=== PATIENT | female | born 1960 | race Caucasian/White ===

== ENCOUNTER 2018-11-12 11:01 | Inpatient (IN) | payer OTHER ==
[2018-11-09 08:59] LABS: BASOPHILS % 0.5 % (0.0-1.0); EOSINOPHILS # (AUTO) 0.1 (0.0-0.4); EOSINOPHILS % 1.3 % (0.0-6.0); HEMATOCRIT 41.6 % (34.2-44.1); HEMOGLOBIN 14.4 g/dL (12.0-16.0); LYMPHOCYTES # (AUTO) 1.5 (1.0-3.2); LYMPHOCYTES % 28.2 % (18.0-39.1); MEAN CORPUSCULAR HEMOGLOBIN 30.4 pg (28-32); MEAN CORPUSCULAR HGB CONC 34.6 g/dL (31-35); MEAN CORPUSCULAR VOLUME 87.9 fL (81-99); MONOCYTES # (AUTO) 0.5 (0.2-0.8); MONOCYTES % 8.2 % (4.4-11.3); NEUTROPHILS # (AUTO) 3.4 (2.1-6.9); NEUTROPHILS % 61.6 % (38.7-80.0); PLATELET COUNT 200 x10e3/uL (140-360); RED BLOOD COUNT 4.73 x10e6/uL (3.6-5.1); RED CELL DISTRIBUTION WIDTH 13.6 % (11.7-14.4)
[2018-11-12] VITALS (8 sets, daily range): BP systolic 116–142; BP diastolic 69–94
[~2018-11-12] VITALS: Ht 170.2 cm; Wt 52.6 kg
[~2018-11-12 11:01] MED LIST: DETROL LA4 MG PO
[2018-11-12] MEDS ORDERED: CLINDAMYCIN 600MG / 50ML 50 ML IV ONE (11:42)
[2018-11-12] MEDS ORDERED: GENTAMICIN 80MG/NS 100 ML 200 ML IV ONE (11:43)
[2018-11-12] MEDS ORDERED: CEFAZOLIN SOD 1 GM/NS 50ML 50 ML IV ONE (11:43)
[2018-11-12] MEDS ORDERED: IOPAMIDOL 610MG/1ML 300 MG/ML VIAL IV ONE (12:20)
[2018-11-12] MEDS ORDERED: MANNITOL 25% 12.5GM/50ML 50 ML ONE (12:57)
[2018-11-12] MEDS ORDERED: MORPHINE SULFATE INJ 10 MG/ML ONE (14:17)
[2018-11-12] MEDS ORDERED: FENTANYL CITRATE/PF 100MCG/2 ML INJ ONE ×2 (14:17→16:12)
[2018-11-12] MEDS ORDERED: MIDAZOLAM HCL 2 MG/2 ML VIAL ONE (14:17)
[2018-11-12] MEDS ORDERED: SUGAMMADEX SODIUM 200 MG/2 ML VIAL IV ONE (14:55)
[2018-11-12] MEDS ORDERED: GLYCOPYRROLATE 0.2 MG/ML VIAL ONE (15:23)
[2018-11-12] MEDS ORDERED: DIPHENHYDRAMINE HCL INJ 50 MG/ML VIAL IM PRN (15:30)
[2018-11-12] MEDS ORDERED: NALOXONE HCL INJ 0.4 MG/ML AMP IV PRN (15:30)
[2018-11-12] MEDS ORDERED: HYDROMORPHONE 2MG/ML 2 MG/ML ML ONE ×2 (16:28→16:53)
--- NOTE | 2018-11-12 16:46 | Diagnostic Imaging Report ---
Examination: Single AP view of the chest. COMPARISON: None. INDICATION: Renal mass, concern for pneumothorax DISCUSSION: The lungs are well-inflated. Curvilinear interface projects over the left lateral thorax, felt to represent a skin fold, as lung markings are identified peripheral to the interface. No definite pneumothorax. No consolidation or effusion. Enteric tube tip projects over the expected region of the proximal gastric body. Postoperative pneumoperitoneum with skin breana along the left upper quadrant of the abdomen/left flank. IMPRESSION: Postsurgical changes of the left flank/left upper abdomen with postoperative pneumoperitoneum. No definite pneumothorax per clinical query. Signed by: Dr. Gianfranco Cassidy M.D. on 11/12/2018 4:43 PM
[2018-11-12] MEDS ORDERED: ONDANSETRON HCL INJ 2MG/ML 2ML 2 MG/ML VIAL ONE ×2 (16:53→18:00)
[2018-11-12] MEDS ORDERED: PROMETHAZINE HCL (IM) 25 MG/ML VIAL ONE (17:11)
[2018-11-12] MEDS ORDERED: MORPHINE SULFATE 1 MG/ML 30ML PCA ONE (17:11)
[2018-11-12] MEDS: MORPHINE SULFATE 1 MG/ML 30ML PCA IV PRN (17:20)
[2018-11-12 17:22] LABS: BASOPHILS % 0.2 % (0.0-1.0); EOSINOPHILS # (AUTO) 0.2 (0.0-0.4); EOSINOPHILS % 1.3 % (0.0-6.0); HEMATOCRIT 36.7 % (34.2-44.1); HEMOGLOBIN 12.6 g/dL (12.0-16.0); LYMPHOCYTES # (AUTO) 0.6 (1.0-3.2); LYMPHOCYTES % 5.3 % (18.0-39.1); MEAN CORPUSCULAR HEMOGLOBIN 30.3 pg (28-32); MEAN CORPUSCULAR HGB CONC 34.3 g/dL (31-35); MEAN CORPUSCULAR VOLUME 88.2 fL (81-99); MONOCYTES # (AUTO) 0.2 (0.2-0.8); MONOCYTES % 1.6 % (4.4-11.3); NEUTROPHILS # (AUTO) 10.3 (2.1-6.9); NEUTROPHILS % 91.2 % (38.7-80.0); PLATELET COUNT 160 x10e3/uL (140-360); RED BLOOD COUNT 4.16 x10e6/uL (3.6-5.1); RED CELL DISTRIBUTION WIDTH 13.2 % (11.7-14.4)
[2018-11-12 17:39] LABS: ANION GAP 13.3 mmol/L (8-16); BLOOD UREA NITROGEN 15 mg/dL (7-26); BUN/CREATININE RATIO 19 (6-25); CALCIUM 8.8 mg/dL (8.4-10.2); CARBON DIOXIDE 23 mmol/L (22-29); CHLORIDE 108 mmol/L (98-107); CREATININE, SERUM 0.77 mg/dL (0.57-1.11); EST GLOMERULAR FILTRATION RATE > 60 ML/MIN (60-); GLUCOSE 91 mg/dL (74-118); POTASSIUM 3.3 mmol/L (3.5-5.1); SODIUM 141 mmol/L (136-145)
[2018-11-12] MEDS ORDERED: SODIUM CHLORIDE 0.9% 500ML 500 ML ONE (17:43)
[2018-11-12] MEDS ORDERED: DEXILANT30 MG (17:58)
[2018-11-12] MEDS ORDERED: LIDOCAINE HCL 2% LOCAL INJ 5 ML SDV VIAL INJ ONE (18:00)
[2018-11-12] MEDS ORDERED: DEXAMETHASONE SOD PHOS INJ 4 MG/ML VIAL ONE (18:00)
[2018-11-12] MEDS ORDERED: SEVOFLURANE INHAL SOLN 250 ML PEN BTL ONE (18:00)
[2018-11-12] MEDS ORDERED: ROCURONIUM BROMIDE 10 MG/ML 5ML VIAL ONE (18:00)
[2018-11-12] MEDS ORDERED: LIDOCAINE HCL 2% JELLY 5 ML TUBE ONE (18:00)
[2018-11-12] MEDS ORDERED: PROPOFOL IV EMULSION 10 MG/ML 20 ML VIAL ONE (18:00)
[2018-11-12] MEDS ORDERED: ACETAMINOPHEN 1000 MG/100 ML IV ONE (18:00)
[2018-11-12] MEDS: SODIUM CHLORIDE 0.9% 250ML IRRIG IR SCH ×2 (18:37→20:29)
[2018-11-12] MEDS: D5.45%NS/KCL 20MEQ 1,000 ML IV SCH (18:38)
[2018-11-13] VITALS (21 sets, daily range): BP systolic 100–146; BP diastolic 48–90
[2018-11-13] MEDS: SODIUM CHLORIDE 0.9% 250ML IRRIG IR SCH ×3 (00:11→08:04)
[2018-11-13] MEDS: MORPHINE SULFATE 1 MG/ML 30ML PCA IV PRN ×2 (00:21→12:26)
[2018-11-13] MEDS: ACETAMINOPHEN 1000 MG/100 ML IV PRN ×3 (00:25→19:53)
[2018-11-13] MEDS: CEFAZOLIN SOD 1 GM/NS 50ML 50 ML IV SCH ×4 (00:27→22:10)
[2018-11-13] MEDS: D5.45%NS/KCL 20MEQ 1,000 ML IV SCH ×4 (04:56→13:33)
[2018-11-13 05:08] LABS: BASOPHILS % 0.2 % (0.0-1.0); HEMATOCRIT 35.6 % (34.2-44.1); LYMPHOCYTES # (AUTO) 1.3 (1.0-3.2); LYMPHOCYTES % 10.3 % (18.0-39.1); MEAN CORPUSCULAR HEMOGLOBIN 29.9 pg (28-32); MEAN CORPUSCULAR HGB CONC 33.7 g/dL (31-35); MEAN CORPUSCULAR VOLUME 88.6 fL (81-99); MONOCYTES # (AUTO) 1.1 (0.2-0.8); MONOCYTES % 8.3 % (4.4-11.3); NEUTROPHILS # (AUTO) 10.4 (2.1-6.9); NEUTROPHILS % 80.7 % (38.7-80.0); PLATELET COUNT 158 x10e3/uL (140-360); RED BLOOD COUNT 4.02 x10e6/uL (3.6-5.1); RED CELL DISTRIBUTION WIDTH 13.3 % (11.7-14.4)
[2018-11-13 05:33] LABS: ANION GAP 10.9 mmol/L (8-16); CALCIUM 8.9 mg/dL (8.4-10.2); CREATININE, SERUM 0.96 mg/dL (0.57-1.11); POTASSIUM 3.9 mmol/L (3.5-5.1)
[2018-11-13] MEDS: NICOTINE 7 MG PATCH TOP SCH ×2 (06:06→08:32)
--- NOTE | 2018-11-13 08:30 | NUR ---
NGT DISCONTINUED. DC'D NASAL CANULA. PATIENT O2 SATS AT 100% ON ROOM AIR.
--- NOTE | 2018-11-13 08:53 | NUR ---
ASSISTED PATIENT OUT OF BED TO CHAIR. PATIENT TOLERATED WELL. VSS
[2018-11-13] MEDS: ONDANSETRON HCL INJ 2MG/ML 2ML 2 MG/ML VIAL IV PRN ×2 (09:23→19:53)
--- NOTE | 2018-11-13 13:52 | NUR ---
Nutrition Intervention Note RD Recommendation(s) for Physician: - When feasible ADAT to goal of GI Soft - Recommend Ensure Clear TID when diet is advanced - Pt meets criteria for moderate protein calorie malnutrition Plan of Care: RD following, monitoring for tolerance and adequacy Nutrition reason for involvement: Nutrition Risk Trigger- MST RD Assessment 11/13: 58 YOF admitted for L renal mass, POD#1 for radical nephrectomy. Pt seen today per MST score. Pt reports decreased po intake for several months and progressive wt loss over the past 2 years, estimates that she has lost 10-20# in the past 6 mo. Pt reports intermittent chronic diarrhea related to diverticulosis, denies GI distress recently. Pt receptive to Ensure Clear when diet advanced, does not like other Ensure products- does not like anything milk based or creamy. Rec's and POC discussed with RN. Will monitor and continue to follow. Principal Problems/Diagnoses: L renal mass PMH: HTN, GERD, PUD, diverticulosis, cholecystectomy GI: WDL Skin: surgical incision Labs: 11/13: Na 136, K 3.9, BUN 15, Cr 0.96, Gluc 106 Meds: zofran, KCl, abx, morphine Ht: 67 in Wt: 117.25 lb BMI: 18.4 kg/m2 IBW: 135 lb Malnutrition Evaluation (11/13/18) The patient meets criteria for MODERATE protein-calorie malnutrition. Energy intake: <75% of estimated energy requirements for >3 months Weight loss: 10% in 6 months (Chronic) Fat loss: Mild Muscle loss: Moderate Supporting Evidence: Fluid accumulation: none Functional Status: no changes Nutrition Prescription (Diet Order): NPO Estimated Nutritional Needs: 1711-9075 calories/day (30-35 kcal/kg CBW) 80-107 g protein/day (1.5-2 g pro/kg CBW) Diet Adequacy: Not meeting calorie needs, Not meeting protein needs Diet Education Needs Assessment: Diet education indicated, but patient not appropriate for education at this time. Nutrition Care Level: Moderate Nutrition Diagnosis: Inadequate energy and protein intake related to poor appetite and intake as evidenced by 10% wt loss in 6 mo and not meeting needs. Goal: Patient will meet 75-100% of estimated needs by follow up Progress: N/A Interventions: Fiber modified diet, Commercial beverage, Recommended Modifications, Collaboration with other providers Monitoring/Evaluation: Total energy intake, Total protein intake, Modified diet, Liquid supplement, Weight change Signed: Cynthia Dunn RD, LD, [facility]
--- NOTE | 2018-11-13 17:21 | NUR ---
received report from thad in icu awaiting for pt to arrive to unit
--- NOTE | 2018-11-13 17:35 | NUR ---
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
[2018-11-14] VITALS (7 sets, daily range): BP systolic 117–180; BP diastolic 70–83
[2018-11-14] MEDS: D5.45%NS/KCL 20MEQ 1,000 ML IV SCH (00:03)
--- NOTE | 2018-11-14 00:09 | Consultation ---
DATE OF CONSULTATION: 11/13/2018 Cardiology Consult Note REASON FOR CONSULT: Bradycardia. CHIEF COMPLAINT: Postop abdominal pain. HISTORY OF PRESENT ILLNESS: The patient is a 58-year-old female, history of smoking, renal cell carcinoma status post partial nephrectomy earlier today, was consulted for evaluation of sinus bradycardia that was observed in the recovery room postoperatively. The patient has history of SVT, however, has not been on any medicines for several years now. Denies any history of TN or any other cardiovascular issues. The patient is a long-time smoker, who quit recently 3 weeks ago. Denies any chest pain or shortness of breath currently or any other symptoms. PAST MEDICAL HISTORY: As above. SOCIAL HISTORY: The patient is a long-time smoker, quit 3 weeks ago. Does not drink or abuse drugs. FAMILY HISTORY: No family history of early CAD or sudden cardiac . REVIEW OF SYSTEMS: As per HPI. Otherwise negative. OUTPATIENT MEDICATIONS: Reviewed. OBJECTIVE: VITAL SIGNS: Temperature afebrile, pulse 60, respiratory rate 14, blood pressure 126/68, and saturating 100% on room air. GENERAL: Thin, white female, in no acute distress. CARDIOVASCULAR: Regular rate and rhythm. No murmurs, rubs, or gallops. LUNGS: Clear to auscultation bilaterally. ABDOMEN: Soft and tender to palpation due to postoperative status. No bowel sounds. NEURO AND PSYCH: Alert and oriented to person, place, and time. Normal affect. INPATIENT MEDICATIONS: Reviewed. LABORATORY DATA: Reviewed. IMAGING DATA: Reviewed. TELEMETRY DATA: Reviewed, sinus bradycardia, now heart rates are in the 60s. The patient is asymptomatic. ASSESSMENT: 1. Bradycardia. 2. History of supraventricular tachycardia. PLAN: Heart rate is improved already without any intervention. If the patient becomes symptomatic or heart rate drops below 40, can give Atropine as needed. Bradycardia is likely related to recent abdominal surgery. Does not need any intervention at this time. Continue to monitor on telemetry. Avoid any beta blockers. Thank you for this consult. We will continue to follow. MD NEL Tirado/JOANL /[id number]
[2018-11-14] MEDS: MORPHINE SULFATE 1 MG/ML 30ML PCA IV PRN (02:02)
[2018-11-14] MEDS: ACETAMINOPHEN 1000 MG/100 ML IV PRN (03:40)
[2018-11-14 06:00] LABS: BASOPHILS % 0.1 % (0.0-1.0); HEMATOCRIT 33.7 % (34.2-44.1); HEMOGLOBIN 11.5 g/dL (12.0-16.0); LYMPHOCYTES % 11.3 % (18.0-39.1); MEAN CORPUSCULAR HEMOGLOBIN 30.3 pg (28-32); MEAN CORPUSCULAR HGB CONC 34.1 g/dL (31-35); MEAN CORPUSCULAR VOLUME 88.7 fL (81-99); MONOCYTES # (AUTO) 0.6 (0.2-0.8); MONOCYTES % 6.6 % (4.4-11.3); NEUTROPHILS # (AUTO) 7.2 (2.1-6.9); NEUTROPHILS % 81.7 % (38.7-80.0); PLATELET COUNT 128 x10e3/uL (140-360); RED CELL DISTRIBUTION WIDTH 13.5 % (11.7-14.4)
[2018-11-14] MEDS: CEFAZOLIN SOD 1 GM/NS 50ML 50 ML IV SCH ×3 (06:02→21:22)
[2018-11-14 06:33] LABS: ANION GAP 7.8 mmol/L (8-16); CALCIUM 8.9 mg/dL (8.4-10.2); POTASSIUM 3.8 mmol/L (3.5-5.1)
[2018-11-14] MEDS ORDERED: BISACODYL 10 MG SUPP PR NR (09:15)
[2018-11-14] MEDS ORDERED: MORPHINE SULFATE INJ 4 MG/ML INJ 1ML IV PRN (09:15)
[2018-11-14] MEDS: NICOTINE 7 MG PATCH TOP SCH (09:18)
[2018-11-14] MEDS ORDERED: ACETAMINOPHEN/CODEINE 300MG - 30MG TAB PO PRN (10:15)
--- NOTE | 2018-11-14 10:42 | NUR ---
Broussard Catheter 20Fr. discontinued at this time. Pt tolerated well. Clear straw colored urine noted in collection bag. 10cc of fluid removed from balloon.
[2018-11-14] MEDS ORDERED: ACETAMINOPHEN 325 MG TAB PO NR (12:00)
[2018-11-14] MEDS: SENNOSIDES 8.6 MG TAB PO SCH ×2 (12:18→18:20)
[2018-11-14 12:41] LABS: BAND NEUTROPHILS % (MANUAL) 1 %; LYMPHOCYTES % (MANUAL) 7 % (19-48); MONOCYTES % (MANUAL) 5 % (3.4-9.0); NEUTROPHILS % (MANUAL) 87 % (40-74); PLATELET ESTIMATE ADEQUATE; PLATELET MORPHOLOGY COMMENT NORMAL; RBC MORPHOLOGY COMMENT NORMAL
[2018-11-14] MEDS: ONDANSETRON HCL INJ 2MG/ML 2ML 2 MG/ML VIAL IV PRN (15:07)
--- NOTE | 2018-11-14 15:42 | NUR ---
Pt ambulated with PT today. Gait steady, no c/o dizziness or pain during ambulation. Pt is able to ambulate by self without need of assistance.
--- NOTE | 2018-11-14 21:15 | Progress Note ---
DATE: 11/14/2018 Cardiology Progress Note. SUBJECTIVE: No major events overnight. OBJECTIVE: VITAL SIGNS: Temperature is afebrile, pulse 81, respiratory rate 20, blood pressure 117/70, saturating 96% on room air. GENERAL: Thin, white female, in no acute distress. CARDIOVASCULAR: Regular rate and rhythm. No murmurs, rubs, or gallops. LUNGS: Clear to auscultation bilaterally. ABDOMEN: Soft, mildly tender to palpation. NEURO AND PSYCH: Alert and oriented to person, place, and time. Normal affect. INPATIENT MEDICATIONS: Reviewed. LABORATORY DATA: Reviewed. IMAGING DATA: Reviewed. TELEMETRY DATA: Reviewed, back in normal sinus rhythm, heart rate in the 80s. ASSESSMENT/PLAN: 1. Bradycardia postoperatively, now resolved. 2. History of supraventricular tachycardia. PLAN: The patient is doing well. Bradycardia is now resolved. We will continue to monitor telemetry for any arrhythmias, otherwise doing well from cardiovascular standpoint. MD NEL Tirado/MARIJA /[id number]
[2018-11-14] MEDS: HYDROCODONE/APAP 10MG-325MG TAB PO PRN (22:16)
[2018-11-15] VITALS (7 sets, daily range): BP systolic 127–157; BP diastolic 74–89
[2018-11-15] MEDS: CEFAZOLIN SOD 1 GM/NS 50ML 50 ML IV SCH ×2 (06:22→14:00)
[2018-11-15 06:26] LABS: BASOPHILS % 0.3 % (0.0-1.0); EOSINOPHILS % 0.6 % (0.0-6.0); HEMATOCRIT 34.8 % (34.2-44.1); HEMOGLOBIN 11.9 g/dL (12.0-16.0); LYMPHOCYTES % 14.2 % (18.0-39.1); MEAN CORPUSCULAR HEMOGLOBIN 30.2 pg (28-32); MEAN CORPUSCULAR HGB CONC 34.2 g/dL (31-35); MEAN CORPUSCULAR VOLUME 88.3 fL (81-99); MONOCYTES # (AUTO) 0.8 (0.2-0.8); MONOCYTES % 11.4 % (4.4-11.3); NEUTROPHILS # (AUTO) 5.1 (2.1-6.9); NEUTROPHILS % 73.2 % (38.7-80.0); PLATELET COUNT 126 x10e3/uL (140-360); RED BLOOD COUNT 3.94 x10e6/uL (3.6-5.1); RED CELL DISTRIBUTION WIDTH 13.2 % (11.7-14.4)
[2018-11-15] MEDS: HYDROCODONE/APAP 10MG-325MG TAB PO PRN ×3 (06:45→17:41)
[2018-11-15] MEDS: BISACODYL 10 MG SUPP PR PRN ×2 (06:45→08:51)
[2018-11-15 06:56] LABS: ANION GAP 10.5 mmol/L (8-16); BLOOD UREA NITROGEN 9 mg/dL (7-26); BUN/CREATININE RATIO 11 (6-25); CALCIUM 9.2 mg/dL (8.4-10.2); CARBON DIOXIDE 26 mmol/L (22-29); CHLORIDE 102 mmol/L (98-107); CREATININE, SERUM 0.83 mg/dL (0.57-1.11); EST GLOMERULAR FILTRATION RATE > 60 ML/MIN (60-); GLUCOSE 67 mg/dL (74-118); POTASSIUM 3.5 mmol/L (3.5-5.1); SODIUM 135 mmol/L (136-145)
--- NOTE | 2018-11-15 08:48 | NUR ---
Patient alert and responsive, rounds by Dr. Oconnor this morning and requested for extra Dulcolax suppository to be given x1 and has been given, on clear liquid diet, encouraged ambulation, VSS, pains well managed, call light within reach. New IV line in place to left hand 20 guage.
[2018-11-15] MEDS: NICOTINE 7 MG PATCH TOP SCH (08:51)
[2018-11-15] MEDS: SENNOSIDES 8.6 MG TAB PO SCH ×2 (08:51→17:17)
--- NOTE | 2018-11-15 11:50 | NUR ---
Patient had breakfast and tolerated well, denies N/V , medicated for pain, no resp distress, OOB and ambulated hallway, back to bed, call light within reach. Benito in place to left flank incision, will monitor.
--- NOTE | 2018-11-15 13:57 | NUR ---
Spoke with Dr. Oconnor and updated on patient status, patient had a small soft BM, tolerated clear liquid lunch. Orders to advance to a regular diet and if tolerates, can be discharged after that.
--- NOTE | 2018-11-15 14:39 | Progress Note ---
DATE: 11/15/2018 Cardiology Progress Note SUBJECTIVE: No major events overnight. Walking around the halls. No shortness of breath or chest pain. OBJECTIVE: VITAL SIGNS: Temperature afebrile, pulse 76, respiratory rate 18, blood pressure 151/89, and saturating 97% on room air. GENERAL: Thin, white female, in no acute distress. CARDIOVASCULAR: Regular rate and rhythm. No murmurs, rubs, or gallops. LUNGS: Clear to auscultation bilaterally. ABDOMEN: Soft, mildly tender to palpation. NEURO AND PSYCH: Alert and oriented to person, place, and time. Normal affect. INPATIENT MEDICATIONS: Reviewed. LABORATORY DATA: Reviewed. IMAGING DATA: Reviewed. TELEMETRY DATA: Reviewed. Remains in sinus rhythm, heart rate in the 70s and 80s now. ASSESSMENT: 1. Bradycardia, now resolved. 2. History of supraventricular tachycardia. PLAN: Doing well. Bradycardia now resolved. No evidence of arrhythmia. Otherwise, we will continue to monitor. MD NEL Tirado/MODL /[id number]
--- NOTE | 2018-11-15 17:52 | NUR ---
Call to Dr. Munguia and concurred to discharge patient as cleared by Dr. Oconnor upon tolerating regular diet. Patient had dinner at this time and denies any nausea, no vomiting, had one small soft BM earlier after lunch but has not had anymore, discharge being processed.
[2018-11-15] MEDS ORDERED: TYLENOL325 MG PO (18:10)
[2018-11-15] MEDS ORDERED: TYLENOL WITH C1 EACH PO (18:10)
[2018-11-15] MEDS ORDERED: COLACE100 MG PO (18:11)
--- NOTE | 2018-11-15 19:00 | NUR ---
L hand 20g IV removed at this time. Catheter tip intact. Pressure dressing applied.
--- NOTE | 2018-11-15 19:26 | NUR ---
Provided with prescriptions, contacts for f/u appt, staple remover,, discharge documentation, IV line removed and cath tip in place, dressing applied. Patient picked up by anna
--- NOTE | 2019-01-08 06:39 | Operative Report ---
DATE OF PROCEDURE: 11/12/2018 SURGEON: Ever Oconnor MD PREOPERATIVE DIAGNOSES: 1. Left renal mass. 2. Nephrolithiasis. POSTOPERATIVE DIAGNOSES: 1. Left renal mass. 2. Nephrolithiasis. 3. Grade 2 cystocele. 4. Grade 2 rectocele. 5. Atrophic (senile) vaginitis. 6. Urethral hypermobility. 7. Possibly firm cervix. OPERATION PERFORMED: 1. Cystourethroscopy with bilateral ureteral catheterization and retrograde ureteropyelography (separate procedure performed for nephrolithiasis). 2. Interpretation of retrograde ureteropyelography. 3. Supervision of fluoroscopy, no radiologist present. 4. Pelvic examination under anesthesia. 5. Left radical nephrectomy (separate procedure performed for left renal mass). CLEANING AND WASHING EQUIPMENT OPERATOR: Bing Oconnor MD. COMPLICATIONS: None. ESTIMATED BLOOD LOSS: 100 mL. CLINICAL SUMMARY: Radha Tejada is a 58-year-old woman with the above preoperative diagnoses. She is brought for the above procedure. She is aware of the risks of bleeding, infection, injury to adjacent structures, need for additional procedures, and elected to proceed. OPERATIVE PROCEDURE IN DETAIL: Informed consent was verified. Radha Tejada was properly identified, taken to the operating room, and placed on a cystoscopy table in supine position. Anesthesia was uneventfully begun. The patient was then carefully gently repositioned in the dorsal lithotomy position with all pressure points were padded. Her genitalia were prepared and draped in usual sterile fashion. The cystoscope sheath was inserted into the patient's urethra with obturator in place and the bladder was drained. Panendoscopy revealed no suspicious mucosal lesions, no tumors, no stones, no diverticula. Normally positioned and configured ureteral orifices were identified. Ureteral catheter was used to cannulate each ureter and retrograde ureteropyelogram was performed. Interpretation of retrograde ureteropyelography: The contrast was instilled in retrograde fashion bilaterally. The right side was unremarkable. There were no tumors, no stones, and no diverticula. Unobstructed drainage was observed. The left side exhibited filling defects corresponding with nephrolithiasis, distortion of the collecting system, which we believe is related to the renal mass that the patient had. Broussard catheter was placed. Pelvic examination under anesthesia revealed a grade 2 cystocele, grade 2 rectocele. There was atrophic vaginitis with urethral hypermobility. The cervix seemed to be firm on palpation and then recommended to the family that the patient needs to follow up with a special weapons and tactics officer for Pap smear and gynecological evaluation. The patient was then taken to the open operating room where she was repositioned on the operating table in the flank position with all pressure points carefully well padded. Her chest, abdomen, and back were prepared and draped in usual sterile fashion. A left flank incision was made, carried through all layers of the abdominal and chest wall. An extrapleural extraperitoneal approach was utilized. We isolated the kidney, isolated the vasculature. We doubly ligated and divided the vein and artery and this allowed us to remove the specimen. We ligated and divided the ureter and specimens were removed. Copious irrigation was performed. We verified hemostasis. The patient's incision was then approximated in layers utilizing heavy Vicryl suture in interrupted [id number] fashion. Benito and sterile dressings were applied. The patient was uneventfully reversed from anesthesia and taken to recovery room in stable condition. There were no complications to the procedure. The patient tolerated the procedure well. Sponge, needle, and instrument counts were of course correct x2 at the end of the case. Estimated blood loss was 100 mL. We will proceed with routine postoperative care and of course ongoing urological followup. MD KURTIS Ruiz/MARIJA /[id number]
== END 2018-11-15 19:17 | disposition home or self-care (01) | DRG 661 ==
LOC: OR 11:01 → PACU V 15:26 → ICU 18:02 → MED/SURG 11-13 17:40
PROVIDERS: ADMIT Internal Medicine; ATTEND Internal Medicine
PROC: 0TT10ZZ Resection of Left Kidney, Open Approach (ICD-10-PCS; principal; 2018-11-12 13:24)
PROC: BT141ZZ Fluoroscopy of Kidneys, Ureters and Bladder using Low Osmolar Contrast (ICD-10-PCS; 2018-11-12 13:24)
DX: N28.9 Disorder of kidney and ureter, unspecified (principal); N13.2 Hydronephrosis with renal and ureteral calculous obstruction; R00.1 Bradycardia, unspecified; N28.1 Cyst of kidney, acquired; I10 Essential (primary) hypertension; K21.9 Gastro-esophageal reflux disease without esophagitis; N81.10 Cystocele, unspecified; N81.6 Rectocele; N39.3 Stress incontinence (female) (male); N95.2 Postmenopausal atrophic vaginitis; K57.90 Diverticulosis of intestine, part unspecified, without perforation or abscess without bleeding; N32.81 Overactive bladder; Z87.891 Personal history of nicotine dependence; Z87.11 Personal history of peptic ulcer disease
CPT/HCPCS: 36415; 71045; 74420; 80048; 83735; 85025; 86850; 86900; 88300; 88307; 88329; 93005; C1758; J0690; J1100; J1580; J2001; J2150; J2250; J2270; J2405; J2550; J3010; J7040